=== PATIENT | male | born 1985 | race Caucasian/White ===

== ENCOUNTER 2019-11-14 21:57 | Emergency (ER) | payer OTHER ==
[~2019-11-14] VITALS: Ht 175.3 cm; Wt 72.7 kg
[2019-11-14 22:26] VITALS: Ht 175.3 cm; Wt 72.7 kg
[2019-11-14] MEDS ORDERED: VOLTAREN75 MG PO (23:57)
[2019-11-14] MEDS ORDERED: TYLENOL W/CODEI1 TAB PO (23:57)
[2019-11-15 00:04] VITALS: BP 121/90
== END 2019-11-15 00:04 | disposition home or self-care (01) ==
LOC: D.ER 21:57
DX: M25.552 Pain in left hip (principal); M25.50 Pain in unspecified joint; V89.9XXA Person injured in unspecified vehicle accident, initial encounter; Y93.9 Activity, unspecified; Y92.9 Unspecified place or not applicable

== ENCOUNTER 2019-12-18 22:36 | Emergency (ER) | payer OTHER ==
[~2019-12-18] VITALS: Ht 175.3 cm; Wt 68.2 kg
[~2019-12-18 22:36] MED LIST: TYLENOL W/CODEI1 TAB PO; VOLTAREN75 MG PO
[2019-12-18 22:43] VITALS: Ht 175.3 cm; Wt 68.2 kg
[2019-12-18] MEDS ORDERED: TORADOL10 MG PO (23:01)
[2019-12-18] MEDS ORDERED: ORAL ANALGESIC9 GM TOPICAL (23:01)
[2019-12-18 23:08] VITALS: BP 132/88
== END 2019-12-18 23:09 | disposition home or self-care (01) ==
LOC: D.ER 22:36
DX: K08.89 Other specified disorders of teeth and supporting structures (principal); R01.1 Cardiac murmur, unspecified; Z72.0 Tobacco use